=== PATIENT | female | born 1940 | race African-American/Black ===

== ENCOUNTER 2018-02-27 09:06 | Emergency (ER) | payer OTHER ==
[~2018-02-27] VITALS: Ht 170.2 cm; Wt 66.2 kg
[~2018-02-27 09:06] MED LIST: ADULT LOW DOSE81 M1 PO; ARICEPT10 MG PO; ASPIR 8181 MG PO; BUSPAR5 MG PO; BUSPIRONE HCL5 MG PO; CALTRATE 6001 TABLE1 PO; CALTRATE 6001 TABLET PO; CIPRO500 MG PO; CLARINEX5 MG PO; DEPAKOTE250 MG PO; DESYREL12.5 MG PO; FLEXERIL5 MG PO; FOSAMAX35 MG PO; FOSAMAX70 MG PO; GLUCOPHAGE500 MG PO; HYDROCHLOROTH12.5 M1 PO; HYDROCHLOROTH12.5 M3 PO; LEVOTHROID50 MCG PO; LEVOTHROID75 MCG PO; LEVOXYL75 MCG PO; METOPROLOL SUCC50 MG PO; MIRTAZAPINE15 MG PO; NAMENDA5 MG PO; PLENDIL10 MG PO; PRINIVIL40 MG PO; RISPERDAL1 MG PO; SIMVASTATIN80 MG PO; SINEMET CR 50-1 EACH PO; SINEMET PO; TRAMADOL HCL50 MG PO; TRAZODONE HCL50 MG PO; TYLENOL WITH C1 EACH PO; VICODIN 5-3001 EACH PO; ZOCOR40 MG PO; ZOCOR80 M1 GT; ZOLOFT50 MG PO; ZYRTEC10 M2 PO
[2018-02-27 09:53] LABS: HEMATOCRIT 33.6 % (36.0-46.0); MCH 30.6 PG (29.0-34.0); MCHC 32.7 G/DL (30.0-36.0); MCV 93.3 FL (83-99); PLATELET COUNT 134 K/uL (156-360); RBC DIS.WIDTH-CV 14.2 % (11.8-14.6); RBC DIS.WIDTH-SD 49.1 % (39-53); WHITE BLOOD COUNT 5.8 K/uL (4.1-10.2)
[2018-02-27 10:00] LABS: ALBUMIN 3.5 g/dL (3.2-4.8)
[2018-02-27 10:01] LABS: CHLORIDE 102 mEq/L (99-109); POTASSIUM 4.4 mEq/L (3.7-5.4); SODIUM 137 mEq/L (136-147)
[2018-02-27 10:03] LABS: GLUCOSE 99 mg/dL (70-99); TOTAL PROTEIN 6.2 g/dL (6.4-8.3)
[2018-02-27 10:05] LABS: TOTAL BILIRUBIN 0.2 mg/dL (0.0-1.0)
[2018-02-27 10:06] LABS: ALKALINE PHOSPHATASE 96 IU/L (3-129)
[2018-02-27 10:07] LABS: GFR ESTIMATE (CALCULATED) > 59 mL/min/
[2018-02-27 10:08] LABS: AST (GOT) 19 IU/L (2-34); UREA NITROGEN (BUN) 27 mg/dL (9-23)
[2018-02-27 10:09] LABS: ALT (GPT) 3 IU/L (3-49)
[2018-02-27 10:10] LABS: LIPASE 35 U/L (1.0-51.0)
[2018-02-27 14:32] LABS: AMYLASE 121 IU/L (1-118)
[2018-02-27 15:07] LABS: C-REACTIVE PROTEIN 1.1 MG/L (0-10)
[2018-02-27] MEDS ORDERED: ZOFRAN4 MG PO (15:41)
[2018-02-27] MEDS ORDERED: TYLENOL WITH C1 EACH PO (15:41)
[2018-02-27] MEDS ORDERED: AUGMENTIN875 MG PO (15:41)
[2018-02-27 16:24] LABS: APPEARANCE CLEAR ((CLEAR)); BILIRUBIN NEGATIVE; BLOOD NEGATIVE; COLOR STRAW ((YELLOW)); GLUCOSE (STRIP) NEGATIVE; KETONES NEGATIVE; LEUKOCYTES NEGATIVE; NITRITE NEGATIVE; PROTEIN (STRIP) NEGATIVE; SPECIFIC GRAVITY 1.018 (1.000-1.030); UCUL ADDED? NO; UROBILINOGEN 0.2 MG/DL (0.2-1.0)
[2018-02-27 18:31] VITALS: BP 154/88
== END 2018-02-27 18:31 | disposition home or self-care (01) ==
LOC: EME 09:06
PROVIDERS: Emergency Medicine; Surgery
DX: K80.20 Calculus of gallbladder without cholecystitis without obstruction (principal); R19.7 Diarrhea, unspecified; F02.80 Dementia in other diseases classified elsewhere, unspecified severity, without behavioral disturbance, psychotic disturbance, mood disturbance, and anxiety; G30.9 Alzheimer's disease, unspecified; E11.9 Type 2 diabetes mellitus without complications; Z79.84 Long term (current) use of oral hypoglycemic drugs; E78.5 Hyperlipidemia, unspecified; G20 Parkinson's disease; G40.909 Epilepsy, unspecified, not intractable, without status epilepticus; E03.9 Hypothyroidism, unspecified; I10 Essential (primary) hypertension; F41.9 Anxiety disorder, unspecified; Z87.891 Personal history of nicotine dependence
CPT/HCPCS: 74177; 76705; 80053; 81003; 82150; 82948; 83690; 85027; 86140; 93005; 99281; 99285; J1885; J2405; J7030